=== PATIENT | female | born 1965 | race Caucasian/White ===

== ENCOUNTER → 2020-12-21 | Outpatient (CLI) | payer OTHER ==
[~2020-12-21] MED LIST: COMPAZINE10 MG PO; CYCLOBENZAPRINE5 MG PO; MOTRIN800 MG PO; NKHM; VALTREX1 GM PO; VOLTAREN75 MG PO
== END | disposition home or self-care (01) ==
LOC: COVID19 17:46
PROVIDERS: ATTEND Internal Medicine
DX: U07.1 COVID-19 (principal)